=== PATIENT | male | born 2000 | race African-American/Black ===

== ENCOUNTER 2019-06-12 23:11 | Emergency (ER) | payer SELFPAY ==
[~2019-06-12] VITALS: Ht 182.9 cm; Wt 106.0 kg
[2019-06-12] MEDS ORDERED: ONDANSETRON HCL 4MG/2ML INJ IV STA (23:46)
[2019-06-12] MEDS ORDERED: SODIUM CHLORIDE 0.9% 1,000 ML IV ONE (23:46)
[2019-06-13] MEDS ORDERED: LORAZEPAM 2MG/ML CPJ IV ONE
[2019-06-13 00:09] LABS: BASOPHILS % 0.7 % (0.0-2.0); EOSINOPHILS % 2.3 % (0.0-5.0); HEMATOCRIT. 44.3 % (42.0-52.0); HEMOGLOBIN. 15.5 g/dL (14.0-18.0); LYMPHOCYTES % 34.5 % (20.0-50.0); MEAN CORPUSCULAR HEMOGLOBIN 32.2 pg (28.0-32.0); MEAN CORPUSCULAR VOLUME 92.2 fL (80.0-94.0); MEAN PLATELET VOLUME 7.4 fl (7.4-10.4); MONOCYTES % 7.4 % (2.0-8.0); NEUTROPHILS % 55.1 % (40.0-76.0); PLATELET 227 x1000/uL (130-400)
[2019-06-13 00:12] LABS: CHLORIDE 109 mEq/L (98-107)
[2019-06-13 00:17] LABS: ETHANOL BLOOD 282 mg/dL
[2019-06-13 00:20] LABS: *BARBITURATES SCREEN URINE NEGATIVE (NEGATIVE); *BENZODIAZEPINES SCREEN URINE NEGATIVE (NEGATIVE); *COCAINE SCREEN URINE PRESUMTIVE POSITIVE (NEGATIVE)
[2019-06-13 00:21] LABS: *AMPHETAMINES SCREEN URINE NEGATIVE (NEGATIVE); CANNABINOID URINE SCREEN PRESUMTIVE POSITIVE (NEGATIVE); METHADONE URINE SCREEN NEGATIVE (NEGATIVE); OPIATES URINE SCREEN NEGATIVE (NEGATIVE); PHENCYCLIDINE URINE SCREEN NEGATIVE (NEGATIVE)
[2019-06-13 00:21] LABS: CREATINE KINASE 268 IU/L (39-308)
[2019-06-13 00:23] LABS: CREATINE KINASE MB FRACTION 1.5 ng/mL (0.5-3.6)
[2019-06-13 05:57] VITALS: BP 156/69
== END 2019-06-13 06:21 | disposition home or self-care (01) ==
LOC: ER 23:11
DX: G92 Toxic encephalopathy (principal); T51.91XA Toxic effect of unspecified alcohol, accidental (unintentional), initial encounter; Y92.9 Unspecified place or not applicable; F14.10 Cocaine abuse, uncomplicated; F12.10 Cannabis abuse, uncomplicated; J45.909 Unspecified asthma, uncomplicated; F17.210 Nicotine dependence, cigarettes, uncomplicated
CPT/HCPCS: 36415; 80053; 80305; 80320; 82550; 82553; 82962; 83690; 84484; 85025; 93005; 96361; 96374; 96375; 99284; 99406; J2060; J2405; J7030; G0480

== ENCOUNTER 2021-10-05 14:25 | Emergency (ER) | payer MEDICAID, OTHER ==
[~2021-10-05] VITALS: Ht 193 cm; Wt 105.0 kg
[2021-10-05 15:02] VITALS: BP 140/72
[2021-10-05] MEDS ORDERED: IBUP-2030 MT (16:04)
== END 2021-10-05 16:28 | disposition home or self-care (01) ==
LOC: ER 14:25
DX: S83.92XA Sprain of unspecified site of left knee, initial encounter (principal); J45.909 Unspecified asthma, uncomplicated; F12.10 Cannabis abuse, uncomplicated; X58.XXXA Exposure to other specified factors, initial encounter; Y93.41 Activity, dancing; Y92.89 Other specified places as the place of occurrence of the external cause; Y99.8 Other external cause status
CPT/HCPCS: 73560; 99283; L1830; Z7610